=== PATIENT | male | born 1990 | race Caucasian/White ===

== ENCOUNTER 2017-01-06 09:03 | Emergency (ER) | payer OTHER ==
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
[~2017-01-06 09:03] MED LIST: AMOXICILLIN PO; BACITRACIN1 GM OINT EXT; BACITRACIN30 GM TOP; BENZONATATE PO; CATAPRES0.1 MG PO; CLEOCIN HCL300 M1 PO; DICLOFENAC PO; FLEXERIL; FLEXERIL10 M1 PO; FLEXERIL10 MG PO; NAPROXEN; NAPROXEN PO; NO MEDICATIONS; PHENERGAN25 M1 PO; ROBAXIN500 MG PO; ROBITUSSIN A-C-S1 ML PO; SUBOXONE 12 MG1 EACH; VIBRAMYCIN100 M1 PO; VICODIN 5/1 TAB 5/50 PO; VOLTAREN75 MG PO; ZOLOFT50 MG PO; ZOVIRAX200 MG PO
[2017-01-06] MEDS ORDERED: SEROQUEL (09:17)
[2017-01-06] MEDS ORDERED: VYVANSE10 MG (09:17)
[2017-01-06] MEDS ORDERED: GRALISE1 EACH (09:17)
[2017-01-06] MEDS ORDERED: INDERAL LA (09:18)
== END 2017-01-06 10:20 | disposition home or self-care (01) ==
LOC: SED 09:03
DX: L03.312 Cellulitis of back [any part except buttock and flank] (principal); F41.9 Anxiety disorder, unspecified; F17.200 Nicotine dependence, unspecified, uncomplicated
CPT/HCPCS: 73110; 99282